=== PATIENT | female | born 1970 | race Caucasian/White ===

== ENCOUNTER → 2020-06-22 | Outpatient (CLI) | payer OTHER ==
[2020-06-22 16:39] LABS: HEMOGLOBIN 15.2 gm/dl (12.3-15.3); RED BLOOD COUNT 5.18 M/UL (4.00-5.10); WHITE BLOOD COUNT 7.8 K/UL (4.5-11.0)
[2020-06-22 16:45] LABS: BUN/CREATININE RATIO 27 (0-10)
[2020-06-24 11:14] LABS: HBSAG SCREEN Negative (Negative); HCV AB <0.1 (0.0-0.9); HEP B CORE AB, TOT Negative (Negative)
[2020-06-24 13:14] LABS: COMPLEMENT C3, SERUM 146 mg/dL (82-167); COMPLEMENT C4, SERUM 31 mg/dL (12-38); RHEUMATOID ARTHRITIS FACTOR <10.0 IU/mL (0.0-13.9)
[2020-06-24 15:14] LABS: A/G RATIO 1.1 (0.7-1.7); ALBUMIN 3.6 g/dL (2.9-4.4); ALPHA-1-GLOBULIN 0.2 g/dL (0.0-0.4); ALPHA-2-GLOBULIN 0.7 g/dL (0.4-1.0); BETA GLOBULIN 1.2 g/dL (0.7-1.3); GAMMA GLOBULIN 1.2 g/dL (0.4-1.8); GLOBULIN, TOTAL 3.3 g/dL (2.2-3.9); M-SPIKE 0.3 g/dL (Not Observed); PROTEIN, TOTAL, SERUM 6.9 g/dL (6.0-8.5); RNP ANTIBODIES 0.2 AI (0.0-0.9); SJOGREN'S ANTI-SS-A <0.2 AI (0.0-0.9); SJOGREN'S ANTI-SS-B <0.2 AI (0.0-0.9); SMITH ANTIBODIES <0.2 AI (0.0-0.9)
[2020-06-25 07:10] LABS: ANTI-DNASE B STREP ANTIBODIES <78 U/mL (0-120)
[2020-06-26 00:09] LABS: CCP ANTIBODIES IGG/IGA 7 units (0-19)
[2020-06-27 17:09] LABS: QUANTIFERON MITOGEN VALUE >10.00 IU/mL (.); QUANTIFERON NIL VALUE 0.02 IU/mL (.); QUANTIFERON TB1 AG VALUE 0.26 IU/mL (.); QUANTIFERON TB2 AG VALUE 0.14 IU/mL (.); QUANTIFERON-TB GOLD PLUS Negative (Negative)
== END ==
LOC: LAB 14:43
PROVIDERS: Internal Medicine
DX: R76.0 Raised antibody titer (principal); R71.0 Precipitous drop in hematocrit; M25.519 Pain in unspecified shoulder; R70.0 Elevated erythrocyte sedimentation rate; Z79.899 Other long term (current) drug therapy
CPT/HCPCS: 36415; 80053; 83520; 84155; 84165; 85025; 86038; 86140; 86160; 86200; 86235; 86431; 86704; 86803; 87340

== ENCOUNTER → 2020-09-23 | Outpatient (CLI) | payer OTHER ==
[2020-09-23 15:04] LABS: HEMOGLOBIN 15.1 gm/dl (12.3-15.3); RED BLOOD COUNT 5.08 M/UL (4.00-5.10); WHITE BLOOD COUNT 6.2 K/UL (4.5-11.0)
[2020-09-23 16:00] LABS: BUN/CREATININE RATIO 30 (0-10)
[2020-09-24 16:12] LABS: A/G RATIO 0.9 (0.7-1.7); ALBUMIN 3.4 g/dL (2.9-4.4); ALPHA-1-GLOBULIN 0.2 g/dL (0.0-0.4); ALPHA-2-GLOBULIN 0.8 g/dL (0.4-1.0); BETA GLOBULIN 1.3 g/dL (0.7-1.3); GAMMA GLOBULIN 1.3 g/dL (0.4-1.8); GLOBULIN, TOTAL 3.7 g/dL (2.2-3.9); M-SPIKE 0.5 g/dL (Not Observed); PROTEIN, TOTAL, SERUM 7.1 g/dL (6.0-8.5)
== END ==
LOC: LAB 12:56
PROVIDERS: Internal Medicine
DX: D47.2 Monoclonal gammopathy (principal)
CPT/HCPCS: 36415; 77075; 80053; 83883; 84155; 84165; 85025